=== PATIENT | male | born 1955 | race Caucasian/White ===

== ENCOUNTER 2023-06-06 14:57 | Inpatient (IN) | payer OTHER ==
[~2023-06-06] VITALS: Ht 170.2 cm; Wt 68.2 kg
[2023-06-06 15:25] LABS: Basophils # (auto) 0 10 ^3/uL (0-0.2); Basophils % (auto) 0.2 % (0.0-2.0); Eosinophils # (auto) 0 10 ^3/uL (0-0.8); Eosinophils % (auto) 0.1 % (0.0-7.0); Hemoglobin 15.3 g/dL (13.5-17.5); Lymphocytes # (auto) 0.6 10 ^3/uL (0.4-5.4); Lymphocytes % (auto) 4.4 % (10.0-50.0); Mean Corpuscular Hgb Conc. 31.2 g/dL (32.0-36.0); Mean Corpuscular Volume 112.2 fL (80.0-100.0); Monocytes # (auto) 1.3 10 ^3/uL (0-1.3); Monocytes % (auto) 9.9 % (0.0-12.0); Neutrophils # (auto) 11.2 10 ^3/uL (1.6-8.6); Neutrophils % (auto) 85.4 % (37.0-80.0); Nucleated Red Blood Cells % 2.8 %; Red Blood Cells 4.37 10^6/uL (4.5-5.90); White Blood Cell 13.1 10^3/uL (4.4-10.8)
[2023-06-06 15:44] LABS: INR 2.77 (0.9-1.15); Partial Thromboplastin Time 33.7 SEC (24.5-34.5); Prothrombin Time 27.2 sec (9.3-11.8)
[2023-06-06 15:45] LABS: Alanine Aminotransferase 606 U/L (7-40); Albumin 3.9 g/dL (3.2-4.8); Alkaline Phosphatase 85 U/L (46-116); Anion Gap 24 (5-15); Aspartate Aminotransferase 841 U/L (13-40); BUN/Creatinine Ratio 26.4 (10.0-20.0); Blood Urea Nitrogen 57 mg/dL (9-23); Calcium 10.2 mg/dL (8.7-10.4); Carbon Dioxide 13 mmol/L (20-30); Chloride 100 mmol/L (98-107); Glucose 83 mg/dL (74-106); Lipase 82 U/L (12-53); Sodium 137 mmol/L (136-145)
[2023-06-06 15:46] LABS: Bilirubin, Total 3.4 mg/dL (0.2-1.0); Total Protein 7.3 g/dL (5.7-8.2)
[2023-06-06 15:48] LABS: Potassium 5.9 mmol/L (3.5-5.1)
[2023-06-06] MEDS ORDERED: ETOMIDATE (2MG/ML) 20ML VIAL IV ONE (16:56)
[2023-06-06] MEDS ORDERED: SUCCINYLCHOLINE CHLORIDE 20 MG/ML 10ML VIAL IV ONE (16:57)
[2023-06-06] MEDS: AMIODARONE BOLUS KIT 100 ML IV ONE (16:58)
[2023-06-06] MEDS: DEXTROSE (50%) 50ML SYRG IV ONE (16:59)
[2023-06-06] MEDS: SUCCINYLCHOLINE CHLORIDE 20 MG/ML 10ML VIAL IV ONE (16:59)
[2023-06-06] MEDS: InsuLIN REG 1unit/0.01ml Soln (100units/ml) IV ONE (16:59)
[2023-06-06] MEDS: MIDAZOLAM HCL 2MG/2ML 2ml VIAL (1mg/ml) IV ONE (17:00)
[2023-06-06] MEDS: MIDAZOLAM DRIP 50 mg/50mL 50 ML IV SCH (17:00)
[2023-06-06] MEDS: AMIODARONE 450mg/250ml AE 250 ML IV SCH (17:00)
[2023-06-06] MEDS ORDERED: MIDAZOLAM DRIP 50 mg/50mL 50 ML IV ONE (17:01)
[2023-06-06] MEDS ORDERED: InsuLIN REG 1unit/0.01ml Soln (100units/ml) ONE (17:01)
[2023-06-06] MEDS ORDERED: AMIODARONE 450mg/250ml AE 250 ML IV ONE (17:02)
[2023-06-06] MEDS ORDERED: MIDAZOLAM HCL 2MG/2ML 2ml VIAL (1mg/ml) ONE (17:04)
[2023-06-06 17:10] VITALS: BP 105/60; PULSE 97; RESP 25; O2SAT 95
[2023-06-06] MEDS ORDERED: NOREPINEPHRINE 8 MG/250ML KIT 250 ML IV ONE (17:12)
[2023-06-06] MEDS: NOREPINEPHRINE 8 MG/250ML KIT 250 ML IV SCH (17:26)
[2023-06-06] MEDS ORDERED: SODIUM BICARB 8.4% 50Meq/50ml SYR Vial IV ONE ×2 (17:28→21:50)
[2023-06-06] MEDS ORDERED: HYDROmorphone HCL 2 MG/ML VL/or syr IV PRN (17:30)
[2023-06-06] MEDS ORDERED: ONDANSETRON HCL 4 MG/2 ML VIAL IV PRN (17:30)
[2023-06-06] MEDS ORDERED: DOCUSATE SOD 100 MG CAP PO PRN (17:30)
[2023-06-06 17:35] LABS: Lactic Acid w/Reflex 12.7 mmol/L (0.4-2.0)
[2023-06-06] MEDS: CALCIUM GLUC 1,000mg/50ml-NS 50 ML IV ONE (17:37)
[2023-06-06] MEDS: SODIUM BICARB 8.4% 50Meq/50ml SYR Vial IV ONE ×2 (17:39→17:46)
[2023-06-06] MEDS: SODIUM CHLORIDE 0.9% 1,000 ML IV ONE (17:39)
[2023-06-06] MEDS: ONDANSETRON HCL 4 MG/2 ML VIAL IV ONE (17:42)
[2023-06-06] MEDS: PIPERACILLIN-TAZOB 3.375GM 100 ML IV ONE (17:45)
[2023-06-06] MEDS: FUROSEMIDE 40 MG/4 ML VIAL IV ONE (17:45)
[2023-06-06] MEDS ORDERED: DEXTROSE (50%) 50ML SYRG IV PRN (17:45)
[2023-06-06 17:57] LABS: Base Excess -19.4 mmol/L (-2.0-2.0)
[2023-06-06] MEDS: InsuLIN REG 1unit/0.01ml Soln (100units/ml) SC SCH (18:00)
[2023-06-06] MEDS: ACCU-CHEK COMFORT CURVE STRIP VI SCH (18:00)
[2023-06-06 18:19] LABS: Phosphorus 11.4 mg/dL (2.4-5.1)
[2023-06-06 18:34] LABS: Magnesium 2.4 mg/dL (1.6-2.6)
[2023-06-06 19:11] LABS: Urine Bacteria MOD /hpf (None Seen); Urine Blood 2+ /uL (Negative); Urine Budding Yeast MODERATE /hpf (None Seen); Urine Clarity CLOUDY (Clear); Urine Color Yellow (Yellow); Urine Mucus FEW (None Seen); Urine Protein, UAD 3+ (Negative); Urine Specific Gravity 1.018 (1.001-1.035); Urine Sperm PRESENT /hpf (None Seen); Urine WBC 201 /hpf (0 - 3); Urine WBC Clumps PRESENT /hpf (None Seen)
[2023-06-06 19:22] LABS: Amphetamine Screen, Urine Pos (NEGATIVE); Barbiturate Scree,Urine Neg (NEGATIVE); Benzodiazephine Screen, Urine Neg (NEGATIVE); Cannabinoid Screen, Urine Neg (NEGATIVE); Cocaine Screen, Urine Neg (NEGATIVE); Opiate Scree,Urine Neg (NEGATIVE); Phencyclidine Screen, Urine Neg (NEGATIVE)
[2023-06-06 19:30] VITALS: PULSE 83; RESP 34; O2SAT 98
[2023-06-06 20:15] VITALS: BP 102/56; PULSE 84; RESP 33; O2SAT 99
[2023-06-06] MEDS: D5W/SOD CHL 0.45% 1,000 ML IV SCH (20:31)
[2023-06-06] MEDS ORDERED: DOPamine 1600MCG/ML D5W 250 ML IV ONE (20:55)
[2023-06-06] MEDS: DOPamine 1600MCG/ML D5W 250 ML IV SCH (21:00)
[2023-06-06 21:02] LABS: Base Excess -12.6 mmol/L (-2.0-2.0)
[2023-06-06] MEDS ORDERED: PHENYLEPHRINE IV 250 ML IV ONE (21:14)
[2023-06-06] MEDS: PHENYLEPHRINE IV 250 ML IV SCH (21:23)
[2023-06-06 21:30] VITALS: TEMP 96.9
[2023-06-06 21:45] VITALS: BP 87/66; PULSE 101; RESP 43; O2SAT 52
[2023-06-06] MEDS ORDERED: LIDOCAINE HCL 100 MG/5ML (2%) SYRG INJ IV ONE (21:50)
[2023-06-06] MEDS ORDERED: EPINEPHrine HCL 1 MG/10 ML SYRG IV ONE (21:50)
[2023-06-06] MEDS ORDERED: AMIODARONE HCL (50 MG/ ML) 3 ML VIAL IV ONE (21:50)
[2023-06-06] MEDS ORDERED: MEROPENEM 1GM IVPB 50 ML IV SCH (22:00)
[2023-06-06] MEDS ORDERED: PANTOPRAZOLE 40 MG/10 ML VIAL INJ IV SCH (22:00)
[2023-06-06] MEDS ORDERED: AMIODARONE 450mg/250ml AE 250 ML IV SCH (23:45)
== END 2023-06-06 21:51 | DRG 871 ==
LOC: ER 14:57 → EDBD 14:57 → TELE 17:35
PROVIDERS: ADMIT Nurse Practitioner Family; ATTEND Nurse Practitioner Family
PROC: 0BH17EZ Insertion of Endotracheal Airway into Trachea, Via Natural or Artificial Opening (ICD-10-PCS; principal; 2023-06-06)
PROC: 5A1935Z Respiratory Ventilation, Less than 24 Consecutive Hours (ICD-10-PCS; 2023-06-06)
PROC: 02H633Z Insertion of Infusion Device into Right Atrium, Percutaneous Approach (ICD-10-PCS; 2023-06-06)
PROC: 5A12012 Performance of Cardiac Output, Single, Manual (ICD-10-PCS; 2023-06-06)
PROC: 5A2204Z Restoration of Cardiac Rhythm, Single (ICD-10-PCS; 2023-06-06)
PROC: 0D9670Z Drainage of Stomach with Drainage Device, Via Natural or Artificial Opening (ICD-10-PCS; 2023-06-06)
DX: A41.9 Sepsis, unspecified organism (principal); G93.41 Metabolic encephalopathy; R65.21 Severe sepsis with septic shock; K72.00 Acute and subacute hepatic failure without coma; J96.01 Acute respiratory failure with hypoxia; J96.02 Acute respiratory failure with hypercapnia; I21.4 Non-ST elevation (NSTEMI) myocardial infarction; K63.1 Perforation of intestine (nontraumatic); N17.0 Acute kidney failure with tubular necrosis; K56.609 Unspecified intestinal obstruction, unspecified as to partial versus complete obstruction; E87.20 Acidosis, unspecified; J90 Pleural effusion, not elsewhere classified; F17.210 Nicotine dependence, cigarettes, uncomplicated; E87.5 Hyperkalemia; I46.9 Cardiac arrest, cause unspecified
CPT/HCPCS: 36415; 36600; 71045; 74176; 80053; 80307; 81001; 82805; 82962; 83605; 83690; 83735; 83880; 84100; 84484; 85025; 85610; 85730; 86850; 86900; 86901; 87040; 87070; 87086; 87205; 92950; 93005; 93306; 94002; 96365; 96375; 99291; 99292; G0378; J0330; J1815; J2250; J2543